=== PATIENT | male | born 1995 | race Caucasian/White ===

== ENCOUNTER 2018-04-17 19:17 | Emergency (ER) | payer MEDICAID ==
[2018-04-17 19:20] VITALS: Ht 180.3 cm
[2018-04-17 20:24] VITALS: BP 140/91
== END 2018-04-17 20:24 | disposition home or self-care (01) ==
LOC: ED 19:17
DX: S39.012A Strain of muscle, fascia and tendon of lower back, initial encounter (principal); X50.0XXA Overexertion from strenuous movement or load, initial encounter; X50.9XXA Other and unspecified overexertion or strenuous movements or postures, initial encounter; Y93.89 Activity, other specified; Y92.89 Other specified places as the place of occurrence of the external cause; Y99.8 Other external cause status
CPT/HCPCS: J1885